=== PATIENT | male | born 1940 | race Caucasian/White ===

== ENCOUNTER 2017-10-04 06:23 | Day surgery (SDC) | payer OTHER ==
--- NOTE | 2017-10-02 10:12 | RAD REPORT ---
EXAM DESCRIPTION: RAD - Chest Pa And Lat (2 Views) - 10/02/2017 10:00 am CLINICAL HISTORY: Hypertension Chest pain. COMPARISON: CHEST PA AND LAT 2 VIEW dated 05/24/2011; CHEST PA AND LAT 2 VIEW dated 05/05/2010; CHEST PA AND LAT 2 VIEW dated 07/03/2007 FINDINGS: The lungs are clear. The heart is normal in size. No displaced fractures. Slight elevation left hemidiaphragm noted. IMPRESSION: No acute or concerning finding suspected.
[2017-10-02 10:32] LABS: Absolute Lymphocytes (CBC) 1.9 K/uL (0.7-4.9); Absolute Monocytes 0.9 K/uL (0.1-1.3); Absolute Neutrophil 4.2 K/uL (1.8-8.0); Eosinophils % 8.7 % (0-4.4); Hematocrit 44.9 % (39.6-49.0); Lymphocytes % 24.8 % (15.3-44.8); MCH 31.9 pg (27.0-35.0); MCV 94.6 fL (80-100); Monocytes % 11.6 % (3.3-12.3); RBC Red Blood Cell Count 4.74 M/uL (4.33-5.43)
[2017-10-02 10:49] LABS: BUN Blood Urea Nitrogen 16 mg/dL (7-18); Bicarbonate 27 mmol/L (21-32); Glucose Level 89 mg/dL (74-106); Sodium Level 141 mmol/L (136-145)
--- NOTE | 2017-10-02 15:41 | EKG ---
Test Date: 2017-10-02 Test Time: 09:49:33 Taker Out: LENI MEASUREMENT RESULTS: Intervals: Rate: 64 AR: 190 QRSD: 86 QT: 400 QTc: 412 [place]: P: -29 AR: 190 QRS: 27 T: 62 INTERPRETIVE STATEMENTS: Normal sinus rhythm Normal ECG Compared to ECG 02/08/2015 14:34:34 No significant changes Electronically Signed On 10-02-17 15:40:22 CDT by Brandon Salcido
--- OUTSIDE RECORDS SUMMARY | 2017-10-04 06:27 | XMS REPORT | Clinical Summary ---
:1940 Author Organization [facility] Address [address] [place] [address] Phone Care Team Providers Name Role Phone Unavailable Primary Care Provider Unavailable Allergies No Known Allergies Current Medications Prescription Sig. Disp. Refills Start Date End Date Status metoprolol Take 25 mg by Active (LOPRESSOR) 25 MG mouth daily. tablet amLODIPine (NORVASC) Take 5 mg by Active 5 MG tablet mouth daily. donepezil (ARICEPT) Take 10 mg by Active 10 MG tablet mouth nightly. aspirin 81 MG Take 81 mg by Active chewable tablet mouth daily. traMADol (ULTRAM) 50 Take 50 mg by Active mg tablet mouth every 6 (six) hours as needed for Pain. gabapentin Take 800 mg by Active (NEURONTIN) 800 MG mouth 3 (three) tablet times daily. ginkgo biloba 120 mg Take by mouth Active Tab daily. ASCORBATE CALCIUM Take by mouth Active (VITAMIN C ORAL) daily. multivitamin Take 1 tablet Active (MULTIVITAMIN) per by mouth daily. tablet cholecalciferol, Take 2,000 05/30/2017 Discontinued vitamin D3, 2,000 Units by mouth unit Tab daily. ginkgo biloba 60 mg Take by mouth. 05/30/2017 Discontinued Cap B INFANTIS/B ANI/B Take by mouth. 05/30/2017 Discontinued SANGEETA/B BIFID (PROBIOTIC 4X ORAL) Active Problems Problem Noted Date Degenerative arthritis of thumb, right 06/11/2017 DRUJ (distal radioulnar joint) post-traumatic arthritis 02/18/2016 Encounters Date Type Specialty Care Team Description 06/13/2017 Telephone Anesthesiology Freddie, Follow-up Naila Garcia RN 06/12/2017 Telephone Anesthesiology Debora Zepeda Follow-up ALEXYS Chiu 06/11/2017 Hospital Encounter Chi Cao MD 06/11/2017 Procedure Pass 06/11/2017 Surgery Chi Cao TENDON B., MD 06/08/2017 Anesthesia Event Osmany Whitley 05/30/2017 Hospital Encounter Pre-Admission Testing Chi Cao Post- traumatic MD Prabhu arthritis of distal radioulnar joint of right wrist 05/30/2017 Orders Only General Internal Medicine after 10/03/2016 Social History Tobacco Use Types Packs/Day Years Used Date Former Smoker Quit: 2005 Smokeless Tobacco: Never Used Comments: quit 1999 Alcohol Use Drinks/Week oz/Week Comments Yes 14 Standard drinks or equivalent 7.0 Sex Assigned at Date Recorded Not on file Last Filed Vital Signs Vital Sign Reading Time Taken Blood Pressure 131/78 06/11/2017 10:50 AM STRAW BALER Pulse 51 06/11/2017 10:50 AM STRAW [facility]ER Temperature 36.7 C (98.1 F) 06/11/2017 10:00 AM STRAW [facility]ER Respiratory Rate 16 06/11/2017 11:20 AM STRAW BALER Oxygen Saturation 99% 06/11/2017 10:50 AM STRAW BALER Inhaled Oxygen Concentration - - Weight 71.2 kg (157 lb) 06/11/2017 6:37 AM STRAW BALER Height 171.4 cm (5' 7.48") 06/11/2017 6:37 AM STRAW BALER Body Mass Index 24.24 06/11/2017 6:37 AM STRAW [facility]ER Plan of Treatment Not on file Implants Implanted Type Area Auto Body Mechanic Apprentice Device Expiration Model / Identifier Date Serial / Lot Cadillac Sut Mini Qanchr 2-0 [id number] - [id number] Cadillac/A Right: J [id number] / Implanted: Qty: 1 on 06/11/2017 by Chi Cao MD rthrosco Thumb &J: ETHICON:MITEK / py PRDT [id number] Explanted Type Area Auto Body Mechanic Apprentice Device Expiration Model / Identifier Date Serial / Lot Cadillac Sut Mini Qanchr 2-0 [id number] - [id number] Cadillac/A Right: J [id number] / Explanted: Qty: 1 on 06/11/2017 by Chi Cao MD rthrosco Thumb &J: ETHICON:MITEK / py PRDT [id number] Procedures Procedure Name Priority Date/Time Associated Diagnosis Comments ARTHROPLASTY,CARPOMET 06/11/2017 8:00 AM Osteoarthritis of ACARPAL TENDON STRAW BALER carpometacarpal joint of SUSPENSION right thumb, unspecified osteoarthritis type TRANSFER,TENDON 06/11/2017 8:00 AM Osteoarthritis of STRAW BALER carpometacarpal joint of right thumb, unspecified osteoarthritis type after 10/03/2016 Results ANESTHESIA PERIPHERAL BLOCK (06/11/2017 10:27 AM) Narrative Massimo Amaya MD 06/11/2017 10:27 AM Peripheral Block Patient location during procedure: post-op Start time: 06/11/2017 10:05 AM End time: 06/11/2017 10:11 AM Reason for block: procedure for pain, at surgeon's request and post-op pain management Staffing Anesthesiologist: MASSIMO AMAYA Performed by: anesthesiologist Preanesthetic Checklist Completed: patient identified, site marked, surgical consent, pre-op evaluation, timeout performed, IV checked, risks and benefits discussed and monitors and equipment checked Peripheral Block Patient position: left lateral decubitus Prep: ChloraPrep Patient monitoring: heart rate, remediation project engineer and continuous pulse ox Block type: supraclavicular Laterality: right Injection technique: catheter Procedures: ultrasound guided and landmark technique Local infiltration: ropivicaine Infiltration strength: 0.2 % Dose: 20 mL Needle Needle type: PAJUNK. Needle gauge: 18 G Needle length: 75mm. Catheter type: open end Catheter size: 20 G Assessment Injection assessment: negative aspiration for heme, no paresthesia on injection, incremental injection and local visualized surrounding nerve on ultrasound Paresthesia pain: none Heart rate change: no Slow fractionated injection: yes Additional Notes Patient tolerated well.No pain on injection or throughout procedure. Procedure Note Massimo Amaya MD - 06/11/2017 10:25 AM STRAW [facility]ER Peripheral Block Patient location during procedure: post-op Start time: 06/11/2017 10:05 AM End time: 06/11/2017 10:11 AM Reason for block: procedure for pain, at surgeon's request and post-op pain management Staffing Anesthesiologist: MASSIMO AMAYA Performed by: anesthesiologist Preanesthetic Checklist Completed: patient identified, site marked, surgical consent, pre-op evaluation , timeout performed, IV checked, risks and benefits discussed and monitors and equipment checked Peripheral Block Patient position: left lateral decubitus Prep: ChloraPrep Patient monitoring: heart rate, remediation project engineer and continuous pulse ox Block type: supraclavicular Laterality: right Injection technique: catheter Procedures: ultrasound guided and landmark technique Local infiltration: ropivicaine Infiltration strength: 0.2 % Dose: 20 mL Needle Needle type: PAJUNK. Needle gauge: 18 G Needle length: 75mm. Catheter type: open end Catheter size: 20 G Assessment Injection assessment: negative aspiration for heme, no paresthesia on injection , incremental injection and local visualized surrounding nerve on ultrasound Paresthesia pain: none Heart rate change: no Slow fractionated injection: yes Additional Notes Patient tolerated well. No pain on injection or throughout procedure. ECG 12 lead (05/30/2017 11:19 AM) Specimen Performing Laboratory MRI Interventions MUSE Narrative Ventricular Rate 62 BPM Atrial Rate 62 BPM P-R Interval 194 ms QRS Duration 88 ms Q-T Interval 402 ms QTC Calculation(Bazett) 408 ms P [place] -13 degrees R [place] 19 degrees T [place] 41 degrees Normal sinus rhythm Normal ECG When compared with ECG of 16-FEB-2016 12:25, Premature atrial complexes are no longer Present Confirmed by Estephania LARA BASANT ([id number]) on 05/30/2017 5:32:18 PM Procedure Note Interface, External Ris In - 05/30/2017 5:32 PM STRAW BALER Ventricular Rate 62 BPM Atrial Rate 62 BPM P-R Interval 194 ms QRS Duration 88 ms Q-T Interval 402 ms QTC Calculation(Bazett) 408 ms P [place] -13 degrees R [place] 19 degrees T [place] 41 degrees Normal sinus rhythm Normal ECG When compared with ECG of 16-FEB-2016 12:25, Premature atrial complexes are no longer Present Confirmed by Estephania LARA BASANT (Meg) on 05/30/2017 5:32:18 PM BUN and Creatinine (05/30/2017 11:18 AM) Component Value Ref Range BUN 15 7 - 21 mg/dL Creatinine 0.77Comment: Specimen slightly hemolyzed 0.57 - 1.25 mg/dL EGFR 98Comment: ESTIMATED GFR IS NOT ACCURATE mL/min/1.73 sq m CREATININE CLEARANCE IN PREDICTING GLOMERULAR FILTRATION RATE. ESTIMATED GFR IS NOT APPLICABLE FOR DIALYSIS PATIENTS. Specimen Performing Laboratory Blood [facility] [address] [address] Hemoglobin (05/30/2017 11:18 AM) Component Value Ref Range Hemoglobin 14.6 13.7 - 17.5 GM/DL Specimen Performing Laboratory Blood [address] [address] Glucose (05/30/2017 11:18 AM) Component Value Ref Range Glucose 106 (H) 70 - 105 mg/dL Specimen Performing Laboratory Blood [address] [address] Electrolytes (05/30/2017 11:18 AM) Component Value Ref Range Sodium 139 136 - 145 meq/L Potassium 4.3Comment: Specimen slightly hemolyzed 3.5 - 5.1 meq/L Chloride 104 98 - 107 meq/L CO2 26 22 - 29 meq/L Specimen Performing Laboratory Blood [address] [address] after 10/03/2016
--- OUTSIDE RECORDS SUMMARY | 2017-10-04 06:27 | XMS REPORT ---
:1940 Author Organization [facility] Address [address] [place] [address] [address] [place] [address] Care Team Providers Name Role Phone KIANNA SMITHÓscar Unavailable Unavailable Problems This patient has no known problems. Allergies, Adverse Reactions, Alerts This patient has no known allergies or adverse reactions. Medications This patient has no known medications. Results Test Description Test Time Test Comments Text Results Atomic Results Result Comments ELECTROLYTES 2017-05-30 12:55:00 Test Item Value Reference Range Comments SODIUM (BEAKER) (test mdmk=976) 139 meq/L 136-145 POTASSIUM (BEAKER) (test tzhx=367) 4.3 meq/L 3.5-5.1 Specimen slightly hemolyzed CHLORIDE (BEAKER) (test jddb=649) 104 meq/L 98-107 CO2 (BEAKER) (test hxrz=779) 26 meq/L 22-29 [id number] 12:55:00 Test Item Value Reference Range Comments GLUCOSE RANDOM (BEAKER) (test tmgt=153) 106 mg/dL 70-105 BUN AND [id number] 12:55:00 Test Item Value Reference Range Comments BLOOD UREA NITROGEN 15 mg/dL 7-21 (BEAKER) (test wbhj=749) CREATININE (BEAKER) (test 0.77 mg/dL 0.57-1.25 Specimen slightly luod=229) hemolyzed EGFR (BEAKER) (test 98 mL/min/1.73 sq m ESTIMATED GFR IS NOT egcv=7671) ACCURATE CREATININE CLEARANCE IN PREDICTING GLOMERULAR FILTRATION RATE. ESTIMATED GFR IS NOT APPLICABLE FOR DIALYSIS PATIENTS. [id number] 12:21:00 Test Item Value Reference Range Comments HEMOGLOBIN (BEAKER) (test hkup=795) 14.6 GM/DL 13.7-17.5
[2017-10-04] MEDS ORDERED: CEFAZOLIN/SWI 1gm 1 GM/10 ML SYR ONE (06:53)
[2017-10-04] MEDS ORDERED: Ringers Lactate 1,000 ML IV ONE (06:53)
[2017-10-04] MEDS: BUPIVACAINE 0.5% PF 10 ML VIAL ONE ×2 (07:20→07:38)
[2017-10-04] MEDS ORDERED: PROPOFOL 200 MG/20 ML VIAL IV ONE (07:21)
[2017-10-04] MEDS ORDERED: FENTANYL CITR 100 MCG/2 ML ONE (07:22)
[2017-10-04] MEDS ORDERED: LIDOCAINE 2% MPF 5 ML VIAL ONE (07:22)
[2017-10-04] MEDS ORDERED: ROCURONIUM 50 MG/5 ML VIAL IV ONE (07:23)
[2017-10-04] MEDS ORDERED: ONDANSETRON HCL 40 MG/20 ML VIAL ONE (07:23)
[2017-10-04] MEDS ORDERED: EPHEDRINE SULF 50 MG/5 ML SYR ONE (08:00)
[2017-10-04] MEDS ORDERED: BUPIVACAINE 0.5% PF 10 ML VIAL ONE (08:19)
[2017-10-04] MEDS ORDERED: GLYCOPYRROLATE 0.2 MG/ML SYR ONE (08:45)
[2017-10-04] MEDS ORDERED: NEOSTIGMINE 1 MG/ML -5 ML SYRINGE ONE (08:47)
[2017-10-04] MEDS: MEPERIDINE HCL 50 MG/ML AMP ONE ×4 (09:22→09:38)
[2017-10-04] MEDS ORDERED: HYDROCODONE/APAP 7.5/325 MG TAB ONE ×2 (10:43→12:41)
--- NOTE | 2017-10-04 15:56 | OP ---
Date of Procedure: 10/04/2017 Surgeon: Roe Ariza MD Np: BURKE Hughes Preoperative Diagnosis: Bilateral inguinal hernia. Postoperative Diagnosis: Bilateral inguinal hernia. Procedure: Repair of bilateral inguinal hernia. Estimated Blood Loss: Minimal. Specimens: Cord lipoma and hernia sac. Findings: As above. Anesthesia: General. Complications: None. Disposition: The patient tolerated the procedure in stable condition and taken to the Recovery in go od general condition. Operative Note: The patient was brought to the OR and placed in supine position. General anesthesia was begun. The patient was prepped and draped in usual sterile fashion. Marcaine 0.5% was infiltra sundeep in a field block fashion. Then, a 4 cm oblique incision made on the right side, first between th e anterior iliac superior spine and the pubic tubercle. Subcutaneous tissue divided. Joni fascia was identified and divided. Aponeurosis was identified and mobilized inferiorly shelving edge. Then , aponeurosis was opened through the external ring. The ilioinguinal nerve was identified and retrac sundeep out of the field of dissection. Cord mobilized and skeletonized. A large indirect sac with cord lipoma identified. High ligation done after appropriate dissection with 0 Prolene suture ligature a s well as free hand tie, and then cord lipoma and hernia sac excised and sent to Pathology as specime n. Marlex mesh plug was placed in the internal ring, secured with VersaTack stapler, and Onlay mesh was placed on the inguinal floor, secured medially to the pubic tubercle, inferiorly to the shelving edge, superior to the conjoined tendon, and laterally to each other. Then, cord structures and ilioi nguinal nerve placed back in anatomical location and then 2-0 Prolene was used to close the aponeuros is. A 3-0 chromic was used to close Joni fascia and staple was used to close the skin. Sterile dr essing was applied. Then, exact same operation was occurred on the left side. Findings were very si milar with the cord lipoma and hernia sac being small. Exact same repair done and then a sterile jayla ssing was applied. The patient was awakened and taken to Recovery in good general condition. Discharge Note: The patient will go to Day Surgery and home when stable. Disposition: Home. Condition: Stable. Discharge Instructions: Resume home meds and diet. Activity as tolerated. No heavy lifting. Remov e outer dressing in 2 days. Shower. Keep wound clean, dry, ice pack, scrotal support. Tylenol No. 3 one tablet p.o. q.4 p.r.n. pain. Follow up in my office in a week. Call for appointment. VIVIAN/SONJA Voice ID: [id number] Report ID: [id number]
== END 2017-10-04 16:00 | disposition home or self-care (01) ==
LOC: OR 06:23
PROVIDERS: ATTEND Surgery
PROC: 0YUA4JZ Supplement Bilateral Inguinal Region with Synthetic Substitute, Percutaneous Endoscopic Approach (ICD-10-PCS; 2017-10-04)
PROC: 0VB Male Reproductive System, Excision (ICD-10-PCS; principal; 2017-10-04 07:30)
DX: K40.20 Bilateral inguinal hernia, without obstruction or gangrene, not specified as recurrent (principal); D17.6 Benign lipomatous neoplasm of spermatic cord
CPT/HCPCS: 36415; 49650; 55559; 71046; 80048; 85025; 88302; 93005; J0690; J2175 ×2; J2405; J2710; J3010

== ENCOUNTER 2018-12-20 10:57 | Inpatient (IN) | payer OTHER ==
--- OUTSIDE RECORDS SUMMARY | 2018-12-20 11:05 | XMS REPORT | Continuity of Care Document ---
:1940 Author Organization [facility] Care Team Providers Name Role Phone [facility] Unavailable Unavailable Problems No Data Provided for This Section Medications No Data Provided for This Section Allergies, Adverse Reactions, Alerts No Known Medication Allergies Immunizations No Data Provided for This Section Results No Data Provided for This Section Pathology Reports No Data Provided for This Section Diagnostic Reports No Data Provided for This Section Consultation Notes No Data Provided for This Section Discharge Summaries No Data Provided for This Section History and Physicals No Data Provided for This Section Vital Signs No Data Provided for This Section Encounters Location Location Encounter Encounter Reason Attending ADM DC Status Source Details Type Number For Provider Date Date Visit [facility] Outpatient [id number] [place] 01/14 01/14 Active [facility] Out[facility] [id number] [place] 01/14 01/15 [facility] Procedures No Data Provided for This Section Assessment and Plan No Data Provided for This Section Plan of Care No Data Provided for This Section Social History Social History Date Source No data available for this 01/15/2018 [facility] section Family History No Data Provided for This Section Advance Directives No Data Provided for This Section Functional Status No Data Provided for This Section
--- OUTSIDE RECORDS SUMMARY | 2018-12-20 11:05 | XMS REPORT | Clinical Summary ---
:1940 Author Organization [facility] Address [address] [place] [address] Care Team Providers Name Role Phone Lonnie Nugent MD Primary Care Provider Allergies No Known Allergies Medications Medication Sig Dispensed Refills Start Date End Date Status metoprolol (LOPRESSOR) Take 25 mg by 0 Active 25 MG tablet mouth daily. amLODIPine (NORVASC) 5 Take 5 mg by 0 Active MG tablet mouth daily. donepezil (ARICEPT) 10 Take 10 mg by 0 Active MG tablet mouth nightly. aspirin 81 MG chewable Take 81 mg by 0 Active tablet mouth daily. traMADol (ULTRAM) 50 mg Take 50 mg by 0 Active tablet mouth every 6 (six) hours as needed for Pain. gabapentin (NEURONTIN) Take 800 mg by 0 Active 800 MG tablet mouth 3 (three) times daily. ginkgo biloba 120 mg Take by mouth 0 Active Tab daily. ASCORBATE CALCIUM Take by mouth 0 Active (VITAMIN C ORAL) daily. multivitamin Take 1 tablet by 0 Active (MULTIVITAMIN) per mouth daily. 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 Last Filed Vital Signs Not on file Plan of Treatment Not on file Implants Implanted Type Area Cardiology Rn Device Shelf Model / Identifier Expiration Serial / Date Lot Lafe Sut Mini Qanchr 2-0 [id number] - [id number] Lafe/A Right: J [id number] / Implanted: Qty: 1 on 06/11/2017 by Chi Cao IV, MD rthrosco Thumb &J:ETHICON:MERCEDESK / py PRDT [id number] Results Not on fileafter 12/19/2017 Insurance Payer Benefit Plan / Group Subscriber ID Type Phone Address MEDICARE MEDICARE A B xxxxxxxxxx Medicare MCR SUPPLEMENT/INDIVIDUAL MUTUAL OF [employer] xxxxxxxx [employer] ([place]) [address] [place] [phone] Advance Directives For more information, please contact:[address] [phone] Code Status Date Activated Date Inactivated Comments Full Code 06/11/2017 6:25 AM 06/11/2017 1:45 PM This code status was determined by: Patient Full Code 02/18/2016 11:03 AM 02/18/2016 7:02 PM This code status was determined by: Patient
--- OUTSIDE RECORDS SUMMARY | 2018-12-20 11:05 | XMS REPORT ---
:1940 Author [facility] Address [address] [place] [address] Care Team Providers Name Role Phone LUIS KIANNA Pelletier Unavailable Unavailable Problems This patient has no known problems. Allergies, Adverse Reactions, Alerts This patient has no known allergies or adverse reactions. Medications This patient has no known medications. Results Test Description Test Time Test Comments Text Results Atomic Results Result Comments ELECTROLYTES 2017-05-30 12:55:00 Test Item Value Reference Range Comments SODIUM (BEAKER) (test badc=173) 139 meq/L 136-145 POTASSIUM (BEAKER) (test lfek=784) 4.3 meq/L 3.5-5.1 Specimen slightly hemolyzed CHLORIDE (BEAKER) (test bhck=161) 104 meq/L 98-107 CO2 (BEAKER) (test lguv=424) 26 meq/L 22-29 [id number] 12:55:00 Test Item Value Reference Range Comments GLUCOSE RANDOM (BEAKER) (test bczx=623) 106 mg/dL 70-105 BUN AND [id number] 12:55:00 Test Item Value Reference Range Comments BLOOD UREA NITROGEN 15 mg/dL 7-21 (BEAKER) (test kifv=979) CREATININE (BEAKER) (test 0.77 mg/dL 0.57-1.25 Specimen slightly nwii=608) hemolyzed EGFR (BEAKER) (test 98 mL/min/1.73 sq m ESTIMATED GFR IS NOT roqc=3696) ACCURATE CREATININE CLEARANCE IN PREDICTING GLOMERULAR FILTRATION RATE. ESTIMATED GFR IS NOT APPLICABLE FOR DIALYSIS PATIENTS. [id number] 12:21:00 Test Item Value Reference Range Comments HEMOGLOBIN (BEAKER) (test rqfn=177) 14.6 GM/DL 13.7-17.5
--- OUTSIDE RECORDS SUMMARY | 2018-12-20 11:05 | XMS REPORT | Clinical Summary ---
:1940 Author Organization [facility] Address [address] [place] [id number] Care Team Providers Name Role Phone Lonnie Nugent MD Primary Care Provider Allergies No Known Allergies Medications Medication Sig Dispensed Refills Start Date End Date Status gabapentin (NEURONTIN) Take 800 mg by 0 Active 800 mg tablet mouth 3 (three) times a day. amLODIPine (NORVASC) 5 Take 5 mg by 0 Active mg tablet mouth daily. vit A/vit C/vit Take by mouth. 0 Active E/zinc/copper (ICAPS AREDS ORAL) donepezil (ARICEPT) 5 Take 5 mg by 0 Active MG tablet mouth nightly. Active Problems Problem Noted Date Spondylolisthesis at L5-S1 level 11/29/2018 Overview: Added automatically from request for surgery [id number] Other spondylosis with radiculopathy, lumbar region 11/29/2018 Overview: Added automatically from request for surgery [id number] Spondylolisthesis at L4-L5 level 11/29/2018 Overview: Added automatically from request for surgery [id number] Encounters Date Type Specialty Care Team Description 11/29/2018 Transcribe Orders Maco Calvert Spondylolisthesis at L5-S1 level (Primary Dx); Mignon Pelletier MD Other spondylosis with radiculopathy, lumbar region; Spondylolisthesis at L4-L5 level 11/22/2018 Office Visit Orthopedic Maco Ferrer Spondylolisthesis at L5- S1 level (Primary Dx); Mignon Pelletier MD Other spondylosis with radiculopathy, lumbar region; Spondylolisthesis at L4-L5 level 11/17/2018 Hospital Encounter Radiology Maco Ferrer Other spondylosis with radiculopathy, lumbar region; MD Prabhu Spondylolisthesis at L4-L5 level; Spondylolisthesis at L5-S1 level 11/15/2018 Office Visit Orthopedic Frandy Garcias Other spondylosis with radiculopathy, lumbar region (Primary Dx); Surgery ANANTH Vallejo Spondylolisthesis at L4-L5 level; Spondylolisthesis at L5-S1 level 10/11/2018 Anesthesia Event General Surgery Gely Alaniz MD Hurd, Sherryl Ann, NP 10/11/2018 Surgery General Surgery Jeremias William LUMBAR FACET JOINT MD Consuelo INJECTION TARGETING THE BILATERAL L4-L5, L5-S1 LEVELS 10/11/2018 Hospital Encounter General Surgery Jeremias William MD 08/16/2018 Surgery General Surgery Jeremias William LUMBAR INTERLAMINAR JIE MD Consuelo TARGETIN LEFT L34 LEVELS WITH INTERLAMINAR LUMBAR JIE TARGETING RIGHT L45 SEGMENT OR OTHER INDICATED PROCEDURES 08/16/2018 Anesthesia Event General Surgery Dhruv Augustine MD Sardina, Maydee, NP 08/16/2018 Hospital Encounter General Surgery Jeremias William MD 08/13/2018 Pre-Admit Testing Pre-Admission Jeremias William Preop testing ( Primary Appointment Testing MD Consuelo Dx) after 12/19/2017 Family History Medical History Relation Name Comments No Known Problems Father Blindness Mother Patric Cancer Mother Patric Stroke Mother Patric Relation Name Status Comments Father Mother Patric Social History Tobacco Use Types Packs/Day Years Used Date Former Smoker Cigarettes 0.25 20 Quit: 2004 Smokeless Tobacco: Former User Snuff Quit: 2004 Alcohol Use Drinks/Week oz/Week Comments Yes 5 Cans of beer 5x/wk 7 Shots of liquor Sex Assigned at Date Recorded Not on file Job Start Date Occupation Industry Not on file Not on file Not on file Travel History Travel Start Travel End No recent travel history available. Last Filed Vital Signs Vital Sign Reading Time Taken Comments Blood Pressure 140/73 10/11/2018 12:00 PM CDT Pulse 67 10/11/2018 12:00 PM CDT Temperature 36.7 C (98 F) 10/11/2018 11:25 AM CDT Respiratory Rate 19 10/11/2018 12:00 PM CDT Oxygen Saturation 96% 10/11/2018 12:00 PM CDT Inhaled Oxygen Concentration - - Weight 75.3 kg (166 lb) 11/15/2018 11:59 AM CDT Height 171.5 cm (5' 7.5") 11/15/2018 11:59 AM CDT Body Mass Index 25.62 11/15/2018 11:59 AM CDT Plan of Treatment Date Type Specialty Care Team Description 01/07/2019 Office Visit Orthopedic [place] Surgery ANANTH Jean [address] [place], [place] [address] 01/07/2019 Pre-Admit Testing Pre-Admission Appointment Testing 01/23/2019 Hospital Encounter [place] [address] [place], [place] [id number] 01/23/2019 Surgery General Surgery Maco Ferrer LUMBAR POSTERIOR MD Prabhu DECOMPRESSION [id number] [facility] LAMINECTOMY L3-4, Freeway L4-5, L5-S1 BILATERAL; [place], [place] LUMBAR POSTERIOR [id number] FUSION WITH [phone] INSTRUMENTATION L3-4, L4-5, L5-S1; LUMBAR (Fax) MORSALIZED ALLOGRAFT, AUTOGRAFT: ILIAC CREST BONE GRAFT, AND INDICATED PROCEDURES. 02/05/2019 [place] [address] [place], [place] [id number] Health Maintenance Due Date Last Done Comments SHINGLES VACCINES (#1) 1990 65+ PNEUMOCOCCAL VACCINE (1 of 2 - PCV13) 2005 INFLUENZA VACCINE 11/07/2018 Procedures Procedure Name Priority Date/Time Associated Diagnosis Comments MRI LUMBAR SPINE Routine 11/17/2018 1:56 Other spondylosis with Results for this WO CONTRAST PM CDT radiculopathy, lumbar procedure are in region the results Spondylolisthesis at section. L4-L5 level Spondylolisthesis at L5-S1 level XR LUMBAR SPINE Routine 11/15/2018 10:37 Lumbar radiculopathy Results for this COMPLETE W BENDING AM CDT procedure are in the results section. OR FL < 1 HOUR Routine 10/11/2018 11:16 Results for this AM CDT procedure are in the results section. OR FL < 1 HOUR Routine 08/16/2018 9:50 Results for this AM CDT procedure are in the results section. ECG 12-LEAD Routine 08/13/2018 12:54 Preop testing Results for this PM CDT procedure are in the results section. after 12/19/2017 Results MRI Lumbar Spine Wo Contrast (11/17/2018 1:56 PM CDT) Specimen Narrative Performed At [facility] EXAM:MRI LUMBAR SPINE WO CONTRAST COMPARISON: None. CLINICAL HISTORY: M47.26 Other spondylosis with radiculopathylumbar region, M43.16 Spondylolisthesislumbar region, [id number] conservative txpersistent sx, lumbar radiculopathylumbar spondylosis spondylolisthesis TECHNIQUE: Multiplanar multisequence examination was performedWithout contrast. FINDINGS: Sagittal images demonstrate generalized disc space narrowing throughout the lumbar spine. There is grade 1 degenerative spondylolisthesis at L4-5. Axial images demonstrate the following: L5-S1: There are facet joint degenerative changes. There is mild central subligamentous protrusion. There is mild multifactorial central canal stenosis and moderate bilateral foraminal stenosis. L4-5: There is annular bulging with a shallow central protrusion. There is a moderate to large broad-based right foraminal/extraforaminal protrusion with apparent compression of the right L4 nerve root. Ligament flavum thickening and facet hypertrophic changes are noted bilaterally more severe on the left. There is moderate to severe multilateral central canal stenosis and foraminal stenosis worse on the right. L3-4: There is annular bulging and spondylosis with moderate multifactorial central canal stenosis. L2-3: There is mild annular bulging and a superimposed small right paracentral protrusion without stenosis. L1-2: There is mild annular bulging without stenosis. IMPRESSION: Broad-based right foraminal/extra foraminal protrusion at L4-5 with impingement on the right L4 nerve root. Central subligamentous protrusion at L5-S1. Small right paracentral protrusion at L2-3 Multilevel canal and foraminal stenosis as discussed above, most prominent at L4-5. [id number] Procedure Note Interface, Radiology Results Incoming - 11/17/2018 2:02 PM CDT EXAM: MRI LUMBAR SPINE WO CONTRAST COMPARISON: None. CLINICAL HISTORY: M47.26 Other spondylosis with radiculopathy lumbar region , M43.16 Spondylolisthesis lumbar region, Radiculopathy 6wks conservative tx persistent sx, lumbar radiculopathy lumbar spondylosis spondylolisthesis TECHNIQUE: Multiplanar multisequence examination was performed Without contrast. FINDINGS: Sagittal images demonstrate generalized disc space narrowing throughout the lumbar spine. There is grade 1 degenerative spondylolisthesis at L4-5. Axial images demonstrate the following: L5-S1: There are facet joint degenerative changes. There is mild central subligamentous protrusion. There is mild multifactorial central canal stenosis and moderate bilateral foraminal stenosis. L4-5: There is annular bulging with a shallow central protrusion. There is a moderate to large broad-based right foraminal/extraforaminal protrusion with apparent compression of the right L4 nerve root. Ligament flavum thickening and facet hypertrophic changes are noted bilaterally more severe on the left. There is moderate to severe multilateral central canal stenosis and foraminal stenosis worse on the right. L3-4: There is annular bulging and spondylosis with moderate multifactorial central canal stenosis. L2-3: There is mild annular bulging and a superimposed small right paracentral protrusion without stenosis. L1-2: There is mild annular bulging without stenosis. IMPRESSION: Broad-based right foraminal/extra foraminal protrusion at L4-5 with impingement on the right L4 nerve root. Central subligamentous protrusion at L5-S1. Small right paracentral protrusion at L2-3 Multilevel canal and foraminal stenosis as discussed above, most prominent at L4-5. [id number] Performing Organization Address City/State/Zipcode Phone Number [facility] [address] [place] [address] XR Lumbar Spine Complete W Flex and Ext (11/15/2018 10:37 AM CDT) Specimen Narrative Performed At 7 views of the lumbar spine are reviewed.AP view demonstrates a mild HM [facility] right lateral lean.There is a slight lateral listhesis of L4 on L5 to the patient's left.There is a slight limb length difference on the right.There are degenerative changes in the hip joints, left worse than right that are partially visualized on the AP radiograph.There are marginal osteophytes on the left at multiple levels in the lower thoracic spine and upper lumbar spine.Lateral view demonstrates disc degeneration at each level in the lumbar spine and in the visualized portion of the lower thoracic spine.There are bridging anterior osteophytes at T10-11, T11-12, T12-L1 and L12.This appearance is consistent with DISH.There is a grade 1 spondylolisthesis at L4-5 and L5-S1. The spondylolisthesis at L5-S1 appears to be mildly unstable on flexion/extension.The L4-5 spondylolisthesis is stable.There is evidence of facet joint arthrosis at L3-4, L4-5 and L5-S1 bilaterally.There is no evidence of acute fracture or osseous lesion in the lumbar spine. Performing Organization Address [facility] Phone Number [facility] [address] [place] [address] OR FL < 1 Hour (10/11/2018 11:16 AM CDT)Only the most recent of2 resultswithin the time period is included. Specimen Narrative Performed At EXAMINATION:OR FL 1 HOUR [facility] CLINICAL HISTORY: None provided. IMPRESSION: 1. Fluoroscopy was provided in the operating. I was not present during the procedure. 2. Please refer to the operative report for findings. 3. Total Dose:3 fluoroscopic images. 24.9 seconds of fluoroscopy time. Procedure Note Interface, Radiology Results Incoming - 10/11/2018 1:38 PM CDT EXAMINATION: OR FL 1 HOUR CLINICAL HISTORY: None provided. IMPRESSION: 1. Fluoroscopy was provided in the operating. I was not present during the procedure. 2. Please refer to the operative report for findings. 3. Total Dose: 3 fluoroscopic images. 24.9 seconds of fluoroscopy time. Performing Organization Address [facility] Phone Number [facility] [address] [place] [address] ECG 12 lead (08/13/2018 12:54 PM CDT) Ventricular rate 83 [facility] Atrial rate 83 [facility] NC interval 186 [facility] QRSD interval 90 [facility] QT interval 378 [facility] QTC interval 444 [facility] P axis 1 -6 [facility] QRS axis 1 -16 [facility] T wave axis 58 [facility] EKG impression Normal sinus [facility] rhythm-Possible Anterior infarct , age undetermined-Abnormal ECG-No previous ECGs available-Electronicall y Signed By Oseas Corbin MD (2024) on 08/15/2018 2:59:57 PM Specimen Narrative Performed At Performing Organization Address City/State/Zipcode Phone Number [facility] [address] [place] [address] after 12/19/2017 Insurance Payer Benefit Plan / Subscriber ID Effective Phone Address Type Group Dates MEDICARE MEDICARE PART xxxxxxxxxxx 2005-[place], [place] Medicare A AND B nt [employer] OF [employer] OF xxxxxxxx 2018-[facility] [employer] [place] Advance Directives For more information, please contact: [phone] Type Date Recorded Patient Janitor Cleaner Explanation Advance Directives, Living Will 08/13/2018 1:01 PM and Medical Power of Nutrition Representative
[2018-12-20 12:11] LABS: Absolute Lymphocytes (CBC) 1.8 K/uL (0.7-4.9); Basophils % 0.7 % (0-1.3); Hematocrit 39.2 % (39.6-49.0); Lymphocytes % 13.9 % (15.3-44.8); MPV 7.4 fL (7.6-11.3); RBC Red Blood Cell Count 4.15 M/uL (4.33-5.43)
--- NOTE | 2018-12-20 12:14 | RAD REPORT ---
EXAM DESCRIPTION: CT - Chest For Pe Angio - 12/20/2018 12:06 pm CLINICAL HISTORY: Chest pain. right lower chest pain, sob COMPARISON: Chest Abdomen Pelvis W Cont dated 12/07/2018; Chest Pa And Lat (2 Views) dated 09/25/2018 TECHNIQUE: CT angiogram of the pulmonary arteries was performed with MIP. All CT scans are performed using dose optimization technique as appropriate and may include automated exposure control or mA/KV adjustment according to patient size. FINDINGS: No evidence of pulmonary thromboembolism. Linear atelectasis is present in both lung bases, slightly greater on the left. Small loculated right pleural effusion is present. No significant pericardial or pleural fluid. No concerning bony finding. IMPRESSION: No evidence of pulmonary thromboembolism. Small loculated right pleural effusion. Subsegmental atelectasis in both lung bases.
--- NOTE | 2018-12-20 12:15 | RAD REPORT ---
EXAM DESCRIPTION: CTAbdomen Pelvis W Contrast - 12/20/2018 12:05 pm CLINICAL HISTORY: Abdominal pain. right upper abdominal pain, IV ONLY, recent appendectomy COMPARISON: Abdomen Pelvis W Contrast dated 07/09/2017 TECHNIQUE: Biphasic CT imaging of the abdomen and pelvis was performed with 100 ml non-ionic IV cont rast. All CT scans are performed using dose optimization technique as appropriate and may include automated exposure control or mA/KV adjustment according to patient size. FINDINGS: Atelectasis is present in both lung bases with a small loculated right pleural effusion.Un derlying developing infiltrate/pneumonia is possible. The liver, spleen, pancreas, adrenal glands and kidneys are within normal limits. No bowel obstruction, free air, free fluid or abscess. Sigmoid diverticulosis without diverticulitis. Appendectomy clips. Inguinal clips bilaterally compatible with prior hernia repair. No evidence of significant lymphadenopathy. No suspicious bony findings. IMPRESSION: No acute intra-abdominal or pelvic finding. Recent appendectomy noted.
[2018-12-20 12:24] LABS: ALT/SGPT 40 U/L (12-78); AST/SGOT 21 U/L (15-37); Albumin 3.6 g/dL (3.4-5.0); Alkaline Phosphatase 90 U/L (45-117); BUN Blood Urea Nitrogen 14 mg/dL (7-18); Bicarbonate 30 mmol/L (21-32); Bilirubin Direct 0.2 mg/dL (0-0.2); Bilirubin Total 0.6 mg/dL (0.2-1.0); Glucose Level 94 mg/dL (74-106); Lipase 160 U/L (73-393); Potassium 3.9 mmol/L (3.5-5.1); Protein, Total 7.2 g/dL (6.4-8.2); Sodium Level 138 mmol/L (136-145); Troponin (Emerg Dept Use Only) < 0.02 ng/mL (0.0-0.045)
[2018-12-20] MEDS ORDERED: ONDANSETRON 4 MG/2 ML VIAL ONE (13:09)
[2018-12-20] MEDS ORDERED: MORPHINE 2 MG/ML SYR ONE (13:09)
[2018-12-20] MEDS ORDERED: NA CHLORIDE 0.9% 1,000 ML ONE (13:30)
[2018-12-20] MEDS ORDERED: ACETAMINOPHEN 500 MG TAB ONE (13:30)
--- NOTE | 2018-12-20 16:21 | RAD REPORT ---
EXAM DESCRIPTION: US - Abdomen Exam Limited - 12/20/2018 4:03 pm CLINICAL HISTORY: right upper abdominal pain COMPARISON: No comparisons FINDINGS: The gallbladder demonstrates no gallstones. No pericholecystic fluid or gallbladder wall t hickening. The common bile duct is normal measuring 4 mm. The liver demonstrates no findings of intrahepatic biliary dilatation. IMPRESSION: Unremarkable examination.
[2018-12-20] MEDS ORDERED: PIPER/TAZO/NS 3.375gm 3.375 GM/100 ML BAG ONE (17:49)
[2018-12-20] MEDS ORDERED: ONDANSETRON 4 MG/2 ML VIAL IV PRN (17:52)
[2018-12-20] MEDS ORDERED: MORPHINE 2 MG/ML SYR IV PRN (17:52)
[2018-12-20] MEDS ORDERED: ACETAMINOPHEN 500 MG TAB PO PRN (17:52)
--- NOTE | 2018-12-20 17:52 | EDPHYS ---
Physician Documentation [facility] Name: Chi Aguillon Age: 78 yrs Sex: Male : 1940 Arrival Date: 12/20/2018 Time: 10:59 Bed 13 Private MD: Evelyn Nugent C ED Physician Omar Sorto HPI: 12/20 11:44 This 78 yrs old Male presents to ER via Ambulatory with complaints of Chest jm Pain, Shortness Of Breath. 11:44 The patient presents with abdominal pain. Onset: The symptoms/episode began/occurred jmm today. This is a 78 year old male with a history of htn that presents to the ED with complaints of right upper abdominal pain, worsening with deep inspiration. S/p appendectomy 1 week prior. Denies fever or chills. Was evaluated at Dr. Guillaume office and advised to go to the ED for further evaluation. . Historical: - Allergies: 11:04 No Known Allergies; aa5 - Home Meds: 14:47 amlodipine oral [Active]; gabapentin Oral [Active]; jl7 - PMHx: 11:04 Hypertension; aa5 - PSHx: 11:04 Hernia repair; aa5 14:47 Appendectomy; jl7 - Immunization history:: Adult Immunizations up to date. - Ebola Screening: : No symptoms or risks identified at this time. - Social history:: Smoking status: Patient/guardian denies using tobacco. ROS: 11:44 Constitutional: Negative for fever, chills, and weight loss. jm 11:44 Respiratory: Negative for shortness of breath, cough, wheezing, and pleuritic chest pain. 11:44 Back: Negative for injury and pain, MS/Extremity: Negative for injury and deformity, Skin: Negative for injury, rash, and discoloration, Neuro: Negative for headache, weakness, numbness, tingling, and seizure. 11:44 Cardiovascular: Positive for chest pain, of the diaphragm and right breast. 11:44 Abdomen/GI: Positive for abdominal pain. 11:44 All other systems are negative. Exam: 11:44 Constitutional: This is a well developed, well nourished patient who is awake, alert, jmm and in no acute distress. Head/Face: atraumatic. Eyes: EOMI, no conjunctival erythema appreciated ENT: Moist Mucus Membranes Neck: Trachea midline, Supple Chest/axilla: Normal chest wall appearance and motion. Cardiovascular: Regular rate and rhythm. No edema appreciated Respiratory: Normal respirations, no respiratory distress appreciated 11:44 Back: Normal ROM Skin: General appearance color normal MS/ Extremity: Moves all extremities, no obvious deformities appreciated, no edema noted to the lower extremities Neuro: Awake and alert, normal gait Psych: Behavior is normal, Mood is normal, Patient is cooperative and pleasant 11:44 Abdomen/GI: Inspection: abdomen appears normal, Bowel sounds: normal, Palpation: soft, moderate abdominal tenderness, in the right upper quadrant. Vital Signs: 11:05 BP 130 / 87; Pulse 84; Resp 18 S; Temp 97.6(TE); Pulse Ox 96% on R/A; Weight 72.57 kg aa5 (R); Height 5 ft. 7 in. (170.18 cm) (R); Pain 8/10; 12:19 BP 126 / 73; Pulse 81; Resp 20; Temp 97.7(TE); Pulse Ox 94% on R/A; mh5 13:00 BP 143 / 90; Pulse 85; Resp 17 S; Pulse Ox 92% on R/A; jl7 13:38 BP 134 / 80; Pulse 98; Resp 22 S; Temp 98.5(O); Pulse Ox 92% on R/A; jl7 14:44 BP 106 / 71; Pulse 88; Resp 15; Temp 99.0(TE); Pulse Ox 92% on R/A; mh5 15:54 BP 93 / 60; Pulse 81; Resp 16; Temp 98.9(TE); Pulse Ox 92% ; mh5 17:28 BP 98 / 63; Pulse 87; Resp 23 S; Pulse Ox 92% on R/A; jl7 18:11 BP 120 / 79; Pulse 82; Resp 16; Temp 97.6(TE); Pulse Ox 93% on R/A; mh5 11:05 Body Mass Index 25.06 (72.57 kg, 170.18 cm) aa5 MDM: 11:40 Patient medically screened. raffy 17:46 Data reviewed: vital signs, nurses notes. Counseling: I had a detailed discussion with raffy the patient and/or guardian regarding: the historical points, exam findings, and any diagnostic results supporting the discharge/admit diagnosis, lab results, radiology results, the need for further work-up and treatment in the hospital. ED course: I discussed the patient with Dr. Nugent whom accepted admission. Advised lovenox for dvt precautions. I discussed patient with Dr. Hernandez whom will consult on admission. . 12/20 11:40 Order name: Basic Metabolic Panel; Complete Time: 12:28 [facility] 12/20 11:40 Order name: CBC with Diff; Complete Time: 12:28 [facility] 12/20 11:40 Order name: Creatinine for Radiology; Complete Time: 12:53 [facility] 12/20 11:40 Order name: Hepatic Function; Complete Time: 12:28 [facility] 12/20 11:40 Order name: Lipase; Complete Time: 12:28 [facility] 12/20 11:40 Order name: Troponin (emerg Dept Use Only); Complete Time: 12:28 [facility] 12/20 11:40 Order name: Procalcitonin; Complete Time: 12:53 [facility] 12/20 11:40 Order name: Lactate; Complete Time: 12:28 [facility] 12/20 11:40 Order name: Blood Culture Adult (2) [facility] 12/20 17:37 Order name: Urine Culture [facility] 12/20 17:37 Order name: Urine Microscopic Only; Complete Time: 21:44 [facility] 12/20 17:57 Order name: Basic Metabolic Panel [facility] 12/20 17:57 Order name: Basic Metabolic Panel [facility] 12/20 17:57 Order name: CBC with Automated Diff [facility] 12/20 11:41 Order name: CT Chest For PE Angio; Complete Time: 12:28 [facility] 12/20 11:41 Order name: CT Abd/Pelvis - IV Contrast Only; Complete Time: 12:28 [facility] 12/20 12:29 Order name: US Abdomen Limited; Complete Time: 16:34 [facility] 12/20 17:36 Order name: Chest Pa And Lat (2 Views) XRAY; Complete Time: 18:13 [facility] 12/20 17:57 Order name: CBC with Automated Diff [facility] 12/20 18:23 Order name: Urine Dipstick--Ancillary (enter results) tn 12/20 18:44 Order name: Urine Dipstick-Ancillary; Complete Time: 21:44 [facility] 12/20 11:40 Order name: IV Saline Lock; Complete Time: 12:03 [facility] 12/20 11:40 Order name: Labs collected and sent; Complete Time: 12:03 [facility] 12/20 11:49 Order name: EKG - Nurse/Tech; Complete Time: 12:03 [facility] 12/20 12:44 Order name: EKG Electrocardiogram; Complete Time: 15:46 [facility] 12/20 13:36 Order name: Vital Signs; Complete Time: 13:38 [facility] 12/20 17:37 Order name: Urine Dipstick-Ancillary (obtain specimen); Complete Time: 18:26 [facility] 12/20 17:57 Order name: CONS Physician Consult [facility] 12/20 17:57 Order name: Clear Liquid [facility] Administered Medications: 12:26 Not Given (Patient Refused): morphine 2 mg IVP once; RASS on ADMIN: Combtv4, Very jl7 Agttd3, Agttd2, Rstlss1, AlertClm0, Drwsy-1, Lt Sdtn-2, Mod Sdtn-3, Dp Sdtn-4, UnArsble-5 12:26 Not Given (Patient Refused): Zofran 4 mg IVP once; over 2 minutes jl7 13:25 Drug: Zofran 4 mg Route: IVP; Site: right antecubital; jl7 14:48 Follow up: Response: No adverse reaction jl7 13:25 Drug: morphine 2 mg Route: IVP; Site: right antecubital; jl7 13:55 Follow up: Response: No adverse reaction; Pain is decreased jl7 13:38 Drug: Tylenol 1000 mg Route: PO; jl7 14:05 Follow up: Response: No adverse reaction; Pain is decreased jl7 13:39 Drug: NS 0.9% 1000 ml Route: IV; Rate: 1 bolus; Site: right antecubital; jl7 14:47 Follow up: Response: No adverse reaction; IV Status: Completed infusion; IV Intake: jl7 1000ml 13:40 Not Given (Duplicate Order): morphine 2 mg IVP once; (PAIN>8) RASS on ADMN: Combtv4, jl7 Very Agttd3, Agttd2, Rstlss1, AlertClm0, Drwsy-1, LtSdtn-2, ModSdtn-3, DpSdtn-4, UnArsble-5 x2 18:23 Drug: Zosyn 3.375 grams Route: IVPB; Infused Over: 60 mins; Site: right antecubital; jl7 19:19 Follow up: IV Status: Infusion continued upon admission jl7 18:23 Drug: Lovenox 40 mg Route: Sub-Q; Site: left lower abdomen; jl7 19:18 Follow up: Response: No adverse reaction jl7 Disposition: 12/20/18 17:50 Hospitalization ordered by Evelyn Nugent for Observation. Preliminary diagnosis are Pleural effusion in conditions classified elsewhere, Unspecified abdominal pain, Dyspnea, unspecified. - Bed requested for Telemetry/MedSurg (observation). - Status is Observation. jl7 - Condition is Stable. - Problem is new. - Symptoms are unchanged. UTI on Admission? No Addendum: 12/21/2018 20:54 Co-signature as Attending Physician, Omar Sorto MD. r n Signatures: Dispatcher [employer] EDMS Elmer Gamble PA PA jmm Solis, Maria ms Nieto, Roman, MD MD rn Calderon, Audri RN RN aa5 Gabrielle Copeland RN RN jl7 Corrections: (The following items were deleted from the chart) 12/20 18:22 17:50 Hospitalization Ordered by A Raffi MENDEZ for Observation. Preliminary diagnosis is ms Pleural effusion in conditions classified elsewhere; Unspecified abdominal pain; Dyspnea, unspecified. Bed requested for Telemetry/MedSurg (observation). Status is Observation. Condition is Stable. Problem is new. Symptoms are unchanged. UTI on Admission? No. [facility] 19:20 18:22 12/20/2018 17:50 Hospitalization Ordered by A Raffi MENDEZ for Observation. jl7 Preliminary diagnosis is Pleural effusion in conditions classified elsewhere; Unspecified abdominal pain; Dyspnea, unspecified. Bed requested for Telemetry/MedSurg (observation). Status is Observation. Condition is Stable. Problem is new. Symptoms are unchanged. UTI on Admission? No. ms
--- NOTE | 2018-12-20 17:52 | ER ---
Nurse's Notes [facility] Name: Chi Aguillon Age: 78 yrs Sex: Male : 1940 Arrival Date: 12/20/2018 Time: 10:59 Bed 13 Private MD: Evelyn Nugent C Diagnosis: Pleural effusion in conditions classified elsewhere;Unspecified abdominal pain;Dyspnea, unspecified Presentation: 12/20 11:04 Presenting complaint: Patient states: "the lower part of my right rib cage hurts and aa5 it's hard to breath". Symptoms began 3 days ago. Pt denies cough, denies injury. Transition of care: patient was not received from another setting of care. Onset of symptoms was December 2018. Risk Assessment: Do you want to hurt yourself or someone else? Patient reports no desire to harm self or others. Initial Sepsis Screen: Does the patient meet any 2 criteria? No. Patient's initial sepsis screen is negative. Does the patient have a suspected source of infection? No. Patient's initial sepsis screen is negative. Care prior to arrival: None. 11:04 Acuity: JIE 3 aa5 11:04 Method Of Arrival: Ambulatory aa5 Historical: - Allergies: 11:04 No Known Allergies; aa5 - Home Meds: 14:47 amlodipine oral [Active]; gabapentin Oral [Active]; jl7 - PMHx: 11:04 Hypertension; aa5 - PSHx: 11:04 Hernia repair; aa5 14:47 Appendectomy; jl7 - Immunization history:: Adult Immunizations up to date. - Ebola Screening: : No symptoms or risks identified at this time. - Social history:: Smoking status: Patient/guardian denies using tobacco. Screenin:30 Abuse screen: Denies threats or abuse. Denies injuries from another. Nutritional jl7 screening: No deficits noted. Tuberculosis screening: No symptoms or risk factors identified. Fall Risk IV access (20 points). Total Hoskins Fall Scale indicates No Risk (0-24 pts). Assessment: 11:30 General: Appears in no apparent distress. uncomfortable, Behavior is calm, cooperative, jl7 appropriate for age. Pain: Complains of pain in diaphragm Pain does not radiate. Quality of pain is described as tender, Pain began 2-3 days ago. Is continuous. Neuro: Level of Consciousness is awake, alert, obeys commands, Oriented to person, place, time, situation. Cardiovascular: Denies chest pain, Heart tones present Patient's skin is warm and dry. Respiratory: Airway is patent Respiratory effort is even, unlabored, shallow, Respiratory pattern is regular, symmetrical, Breath sounds are clear in right upper lobe and left upper lobe. Derm: Skin is pink, warm \\T\\ dry. Musculoskeletal: Tenderness present in right rib cage. 12:15 Reassessment: Pt refused medication at this time, instructed to notify nurse if he jl7 starts feeling worse and wants the medication, pt verbally acknowledges understanding. 13:25 Reassessment: Pt appears to be shaking and reports "I just started shaking and got the jl7 chills. The pain is getting pretty bad, I'm ready for some medicine." Pt medicated as originally ordered. 14:30 Reassessment: Pt laying in bed with eyes closed, respirations even and unlabored, no jl7 signs of distress noted at this time. 15:30 Reassessment: Patient appears in no apparent distress at this time. No changes from 7 previously documented assessment. 16:30 Reassessment: Patient appears in no apparent distress at this time. Patient and/or [facility] family updated on plan of care and expected duration. Pain level reassessed. Patient is alert, oriented x 3, equal unlabored respirations, skin warm/dry/pink. 17:15 Reassessment: Pt ambulated to bathroom and around fast track back to room, O2 sat at jl7 89% on arrival back to room and up to 93% after sitting for about 3 minutes. ERP updated. 18:15 Reassessment: Patient appears in no apparent distress at this time. No changes from jl7 previously documented assessment. Patient and/or family updated on plan of care and expected duration. Pain level reassessed. Patient is alert, oriented x 3, equal unlabored respirations, skin warm/dry/pink. 18:22 Reassessment: attempted to call report, nurse unavailable. 7 Vital Signs: 11:05 BP 130 / 87; Pulse 84; Resp 18 S; Temp 97.6(TE); Pulse Ox 96% on R/A; Weight 72.57 kg aa5 (R); Height 5 ft. 7 in. (170.18 cm) (R); Pain 8/10; 12:19 BP 126 / 73; Pulse 81; Resp 20; Temp 97.7(TE); Pulse Ox 94% on R/A; mh5 13:00 BP 143 / 90; Pulse 85; Resp 17 S; Pulse Ox 92% on R/A; jl7 13:38 BP 134 / 80; Pulse 98; Resp 22 S; Temp 98.5(O); Pulse Ox 92% on R/A; jl7 14:44 BP 106 / 71; Pulse 88; Resp 15; Temp 99.0(TE); Pulse Ox 92% on R/A; mh5 15:54 BP 93 / 60; Pulse 81; Resp 16; Temp 98.9(TE); Pulse Ox 92% ; mh5 17:28 BP 98 / 63; Pulse 87; Resp 23 S; Pulse Ox 92% on R/A; jl7 18:11 BP 120 / 79; Pulse 82; Resp 16; Temp 97.6(TE); Pulse Ox 93% on R/A; mh5 11:05 Body Mass Index 25.06 (72.57 kg, 170.18 cm) aa5 ED Course: 10:59 Patient arrived in ED. rg4 10:59 Evelyn Nugent MD is Private Physician. rg4 11:03 Arm band placed on. aa5 11:05 Triage completed. aa5 11:06 EKG completed in triage. Results shown to MD. aa5 11:08 EKG done, by reproduction technician. reviewed by Omar Sorto MD. at1 11:29 Gabrielle Copeland, RN is Primary Nurse. jl7 11:30 Patient has correct armband on for positive identification. Placed in gown. Bed in low jl7 position. Call light in reach. Side rails up X 1. care provider on. Pulse ox on. NIBP on. 11:31 Elmer Gamble PA is PHCP. [facility] 11:31 Omar Sorto MD is Attending Physician. jmm 11:45 Inserted saline lock: 22 gauge in right forearm, using aseptic technique. Blood jl7 collected. Patient maintains SpO2 saturation greater than 95% on room air. 11:45 Initial lab(s) drawn, by ct, sent to lab. First set of blood cultures drawn by me. jl7 12:08 CT Chest For PE Angio In Process Unspecified. EDMS 12:18 CT Abd/Pelvis - IV Contrast Only In Process Unspecified. EDMS 12:31 Second set of blood cultures drawn by me. jl7 16:08 US Abdomen Limited In Process Unspecified. EDMS 17:50 Evelyn Nugent MD is Hospitalizing Provider. jmm 17:59 Chest Pa And Lat (2 Views) XRAY In Process Unspecified. EDMS 19:17 No provider procedures requiring assistance completed. Patient admitted, IV remains in jl7 place. intact, No redness/swelling at site. Administered Medications: 12:26 Not Given (Patient Refused): morphine 2 mg IVP once; RASS on ADMIN: Combtv4, Very jl7 Agttd3, Agttd2, Rstlss1, AlertClm0, Drwsy-1, Lt Sdtn-2, Mod Sdtn-3, Dp Sdtn-4, UnArsble-5 12:26 Not Given (Patient Refused): Zofran 4 mg IVP once; over 2 minutes jl7 13:25 Drug: Zofran 4 mg Route: IVP; Site: right antecubital; jl7 14:48 Follow up: Response: No adverse reaction jl7 13:25 Drug: morphine 2 mg Route: IVP; Site: right antecubital; jl7 13:55 Follow up: Response: No adverse reaction; Pain is decreased jl7 13:38 Drug: Tylenol 1000 mg Route: PO; jl7 14:05 Follow up: Response: No adverse reaction; Pain is decreased jl7 13:39 Drug: NS 0.9% 1000 ml Route: IV; Rate: 1 bolus; Site: right antecubital; jl7 14:47 Follow up: Response: No adverse reaction; IV Status: Completed infusion; IV Intake: jl7 1000ml 13:40 Not Given (Duplicate Order): morphine 2 mg IVP once; (PAIN>8) RASS on ADMN: Combtv4, jl7 Very Agttd3, Agttd2, Rstlss1, AlertClm0, Drwsy-1, LtSdtn-2, ModSdtn-3, DpSdtn-4, UnArsble-5 x2 18:23 Drug: Zosyn 3.375 grams Route: IVPB; Infused Over: 60 mins; Site: right antecubital; jl7 19:19 Follow up: IV Status: Infusion continued upon admission jl7 18:23 Drug: Lovenox 40 mg Route: Sub-Q; Site: left lower abdomen; 7 19:18 Follow up: Response: No adverse reaction jl7 Intake: 14:47 IV: 1000ml; Total: 1000ml. jl7 Outcome: 17:50 Decision to Hospitalize by Provider. raffy 19:17 Admitted to Med/surg accompanied by tech, family with patient, via wheelchair, room jl 201, with chart, Report called to Floor RN 19:17 Condition: stable 19:17 Discharge instructions given to patient, family, Instructed on the need for admit, Demonstrated understanding of instructions. 19:20 Patient left the ED. [facility] Signatures: Dispatcher [employer] EDMS Elmer Gamble PA PA jmm Calderon, Audri, RN RN aa5 Gerri Lezama, dry cleaning attendant EKG Tat1 Claudia Leslie4 Lindsey Mosquera 5 Gabrielle Copeland, RN RN jl7 Corrections: (The following items were deleted from the chart) 13:40 13:25 morphine 2 mg IVP in right antecubital jl7 jl7 17:54 17:28 BP 98 / 63; Pulse 90bpm; Resp 87bpm; Spontaneous; Pulse Ox 92% RA; jl7 jl7 18:24 18:23 Zosyn 3.375 grams IVPB in left antecubital over 60 mins jl7 7 18:32 17:15 Reassessment: Patient appears in no apparent distress at this time. No changes jl7 from previously documented assessment. Patient and/or family updated on plan of care and expected duration. Pain level reassessed. Patient is alert, oriented x 3, equal unlabored respirations, skin warm/dry/pink. jl7
[2018-12-20] MEDS: NA CHLORIDE 0.9% 1,000 ML IV SCH ×2 (18:00→19:52)
[2018-12-20] MEDS ORDERED: PIPER/TAZO/NS 3.375gm 3.375 GM/100 ML BAG IVPB SCH (18:00)
--- NOTE | 2018-12-20 18:06 | RAD REPORT ---
EXAM DESCRIPTION: RAD - Chest Pa And Lat (2 Views) - 12/20/2018 5:58 pm CLINICAL HISTORY: chest pain, shortness of breath Chest pain. COMPARISON: Chest Pa And Lat (2 Views) dated 09/25/2018; Chest Pa And Lat (2 Views) dated 10/02/2017; CHEST PA AND LAT 2 VIEW dated 05/24/2011; CHEST PA AND LAT 2 VIEW dated 05/05/2010; Abdomen Exam Limite d dated 12/20/2018; Chest For Pe Angio dated 12/20/2018 FINDINGS: Linear opacities in both lung bases are present compatible with atelectasis. Small right p leural effusion is present. The heart is normal in size. No displaced fractures.
[2018-12-20] MEDS ORDERED: ENOXAPARIN 40 MG/0.4 ML SQ ONE (18:07)
[2018-12-20 18:42] LABS: Urine Bacteria <20 /HPF (NONE SEEN); Urine Culture Reflex Order NOT NEEDED; Urine RBC <5 /HPF (NONE SEEN)
[2018-12-20 18:43] LABS: Urine Blood NEGATIVE (NEG); Urine Glucose NEGATIVE (NEG); Urine Protein NEGATIVE (NEG); Urine pH 6.5 (5.0-7.0)
[2018-12-20 20:18] VITALS: BMI 24.0
--- NOTE | 2018-12-20 20:20 | EKG ---
Test Date: 2018-12-20 Test Time: 11:07:52 [employer] Laborer: HOLGER MEASUREMENT RESULTS: Intervals: Rate: 83 OH: 182 QRSD: 88 QT: 364 QTc: 427 Coleman: P: 31 OH: 182 QRS: -16 T: 54 INTERPRETIVE STATEMENTS: Normal sinus rhythm Nonspecific ST abnormality Abnormal ECG Compared to ECG 10/02/2017 09:49:33 ST (T wave) deviation now present Electronically Signed On 12-20-18 20:18:26 CDT by Brandon Salcido
[2018-12-20] MEDS ORDERED: PIPER/TAZO/NS 3.375gm 6.750 GM/200 ML BAG ONE (23:32)
[2018-12-20] MEDS: PIPER/TAZO/NS 3.375gm 3.375 GM/100 ML BAG IVPB SCH (23:45)
[2018-12-21] MEDS: NA CHLORIDE 0.9% 1,000 ML IV SCH ×2 (03:55→14:00)
[2018-12-21] MEDS: PIPER/TAZO/NS 3.375gm 3.375 GM/100 ML BAG IVPB SCH ×4 (05:21→22:13)
[2018-12-21 06:03] LABS: Absolute Lymphocytes (CBC) 1.5 K/uL (0.7-4.9); Basophils % 0.9 % (0-1.3); Hematocrit 34.7 % (39.6-49.0); MPV 7.4 fL (7.6-11.3); RBC Red Blood Cell Count 3.64 M/uL (4.33-5.43)
[2018-12-21 06:17] LABS: BUN Blood Urea Nitrogen 13 mg/dL (7-18); Bicarbonate 30 mmol/L (21-32); Glucose Level 94 mg/dL (74-106); Potassium 4.1 mmol/L (3.5-5.1); Sodium Level 141 mmol/L (136-145)
--- NOTE | 2018-12-21 10:41 | P.CNS ---
Date of Consult: 12/21/18 Chief Complaint: A right-sided pleuritic chest pain History of Present Illness: Patient is 78 years of age admitted with sudden onset of right-sided pleuritic chest pain describes as deep underneath his right ribcage no fever chills cough sputum hemoptysis patient did have an appendectomy on Sunday which is a Labor Day he developed this pain the following Sunday came to the emergency room was found to have a loculated effusion on the right side not a parent on the chest x -ray CT of the abdomen ultrasound was unremarkable he still has some discomfort Allergies No Known Allergies Allergy (Verified 12/20/18 19:45) Home Medications: Unobtainable 12/20/18 - Past Medical/Surgical History Diabetic: No -: HTN -: Cataracts -: Hernia Repair -2016 -: Knee Surgery (bilateral)-2006 and 2007 - Social History Smoking Status: Unknown if ever smoked Alcohol use: Yes CD- Drugs: No Caffeine use: Yes Place of Residence: Home Review of Systems 10-point ROS is otherwise unremarkable Physical Examination Temp Pulse Resp BP Pulse Ox 97.9 F 88 17 119/71 95 12/21/18 08:00 12/21/18 08:00 12/21/18 08:00 12/21/18 08:00 12/21/18 08:00 General: Alert, In no apparent distress, Oriented x3 HEENT: Atraumatic Respiratory: Clear to auscultation bilaterally Cardiovascular: No edema, Regular rate/rhythm, Normal S1 S2 Gastrointestinal: Normal bowel sounds, Tenderness (Patient has slight tenderness in the right upper quadrant to the right flank region otherwise is abdomen looks normals incisions side is fine) Laboratory Data (last 24 hrs) 12/20/18 11:45: Creatinine 0.74 12/20/18 11:45: WBC 12.8 H D, Hgb 14.3 D, Hct 39.2 L D, Plt Count 326 D 12/20/18 11:45: Sodium 138, Potassium 3.9, BUN 14, Creatinine 0.72, Glucose 94, Total Bilirubin 0.6, AST 21, ALT 40, Alkaline Phosphatase 90, Lipase 160 - Problems (1) Pleuritic chest pain Current Visit: Yes Status: Acute Plan: Patient is 78 years of age admitted with right-sided pleuritic chest pain is a very small loculated pleural effusion apparent only on the CT scan white count has declined cultures are pending patient's blood pressure is a little low fold amlodipine oxygenation satisfactory chemistries unremarkable pro calcitonin level is negative once is cultures and negative patient can be discharged home patient was already on Augmentin continue with present treatment use over-the- counter nonsteroidals
[2018-12-21] MEDS ORDERED: levoFLOXacin 500 MG TAB PO ONE (16:19)
[2018-12-21] MEDS ORDERED: ENOXAPARIN 40 MG/0.4 ML SQ SCH (17:00)
[2018-12-21] MEDS: NEURONTIN 800 MG PO SCH (20:48)
[2018-12-21] MEDS ORDERED: GABAPENTIN 400 MG CAP PO SCH (21:00)
[2018-12-21] MEDS ORDERED: DONEPEZIL HCL 5 MG TAB PO SCH (21:00)
--- NOTE | 2018-12-21 22:29 | HP ---
Date of Admission: 12/20/2018 Chief Complaint: Pain. History Of Present Illness: This is a 78-year-old very pleasant male patient who had acute appendici tis earlier this month and he was in the hospital for few days. He had emergency laparoscopic append ectomy surgery done by Dr. Salazar and stayed in hospital for few days. While he was in hospital, in itially he was getting IV Cipro, and IV Flagyl and his WBC count went up on this 2 antibiotics, so we discontinued those 2 antibiotics and started him on IV Zosyn. He responded well to Zosyn. White co unt came down to normal and on December 11, 2018, he was discharged to go home with 2 weeks of Augmen tin 875 mg twice a day. Patient has been taking his medications including antibiotics regularly. As of Sunday evening of this week, he started to have pain in the right lower anterior rib cage area. The pain was more or less continuous and reported that the pain was getting worse with deep breaths or certain movements. No fever, chills, nausea, vomiting. No rash. No fall. No injury. No consti pation. No diarrhea. He went to see Dr. Salazar yesterday and Dr. Salazar evaluated him and he did not have any concern about any postsurgical complication, but due to this pain, he asked the patient to come to the emergency room. After the patient came to the ER, he was evaluated and admitted to [facility] with Pulmonary consultation. Workup done in the emergency room reviewed when ER provider contacted me for admission. This morning when I saw him, he is feeling better compared to yesterday. He denies any expectoration. Allergies: NO KNOWN ALLERGIES. Medications: List reviewed. Review of Systems: GI: As mentioned above. Respiratory: As mentioned above. Cardiovascular: As mentioned above. All other systems reviewed and negative. Past Medical History: Significant for hypertension, mixed hyperlipidemia, diverticulosis, benign pro static hypertrophy, osteoarthritis at multiple sites, peripheral neuropathy, and impaired memory. Past Surgical History: Knee surgery, shoulder surgery for rotator cuff, and cataracts surgery. Family History: Mother had myocardial infarction and brain tumor. Social History: Positive for occasional smoking and use of alcohol about 2 drinks a week. Physical Examination: VITAL SIGNS: Last vital signs this morning; temperature 97.6, pulse 78, respiratory rate 18, blood p ressure 109/60, oxygen saturation 92%. Height 5 feet 7 inches, weight 153 pounds. General: Awake, alert, oriented, not in distress. HEENT: Head atraumatic, normocephalic. Conjunctivae nonerythematous. Sclerae white. Mouth, no thr ush or edema noted. Ears/Nose, no mass, lesion, discharge noted. Neck: Supple. No JVD, lymph nodes, bruit, thyromegaly noted. Lungs: Right lung base diminished air entry compared to the left side. Heart: Normal heart sounds, no murmur or gallop. Abdomen: Soft, bowel sounds normal. No guarding, rigidity, tenderness, mass, hepatosplenomegaly, dis tention, or bruit noted. Extremities: No leg edema. No calf tenderness. Skin: No rash, ulcer, cellulitis. Lymphatics: No lymph node enlargement in neck, supraclavicular, infraclavicular region. Neuro: No focal neurological deficit. Chest: Unremarkable. External Genitalia: Deferred. Rectal: Deferred. Laboratory Data: White count 12.8, hemoglobin 14.3, platelets 326 yesterday. Today, white count 8, hemoglobin 12.3, platelets 252. Yesterday, sodium 138, potassium 3.9, chloride 104, bicarb 30, BUN 1 4, creatinine 0.72, glucose 94. Liver function tests unremarkable. Troponin less than 0.02. Procal citonin less than 0.05. This morning, sodium 141, potassium 4.1, chloride 107, bicarb 30, BUN 13, cr eatinine 0.80, glucose 94. His chest x-ray shows linear opacities in both lung bases compatible with atelectasis, small right pleural effusion present. Right upper quadrant abdominal ultrasound was un remarkable. CAT scan of the chest per PE protocol was negative for pulmonary embolism. Small locula sundeep right pleural effusion. Subsegmental atelectasis both lung bases. CAT scan of the abdomen shows no acute intraabdominal or pelvic finding. EKG; normal sinus rhythm, nonspecific ST changes. Impression: 1.Right pleural effusion, loculated. 2.Rule out pneumonia. 3.Hypertension. 4.Mixed hyperlipidemia. 5.Diverticulosis. 6.Benign prostatic hypertrophy. 7.Osteoarthritis, multiple sites. 8.Peripheral neuropathy. 9.Impaired memory. Plan: Admit patient to hospital for further evaluation and management of this problem. The patient is appropriate for inpatient and is expected to spend 2 midnights in hospital. He was already taking Augmentin for 10 days and still ended up having this problem with pleural effusion and I am not sure if there is any underlying small infiltrate or not that we may not be able to see because of the ple ural effusion, but in any case, he was using his incentive spirometer regularly at home and taking an tibiotics regularly. So, I am concerned that antibiotic that he was taking at home, which is Augment in, really did not prevent this particular problem from happening. Currently while in the hospital, he is on IV Zosyn. Pulmonary consultation was requested from Dr. Hernandez and after I saw him this m orning, Dr. Hernandez did evaluate him. I did talk to him and explained him about all these details a nd we both agreed that we should continue Augmentin upon discharge from the hospital, but we should a lso add second antibiotic like Levaquin for about 1 week. Our plan is to keep him in the hospital un til we get the preliminary blood culture results back. If the blood culture results negative, then w e will be able to discharge him to go home with oral antibiotic. Home medications will be continued per order. DVT prophylaxis was started yesterday from emergency using Lovenox. CHELA/MODL Voice ID: [id number]
[2018-12-22] MEDS ORDERED: PIPERACIL/TAZO 3.375 GM VIAL IV ONE (05:34)
[2018-12-22] MEDS ORDERED: NA CHLORIDE 0.9% 100 ML ONE (05:39)
[2018-12-22] MEDS: PIPER/TAZO/NS 3.375gm 3.375 GM/100 ML BAG IVPB SCH (05:51)
[2018-12-22] MEDS: NA CHLORIDE 0.9% 1,000 ML IV SCH ×2 (05:51)
[2018-12-22] MEDS: NEURONTIN 800 MG PO SCH (08:30)
[2018-12-22] MEDS ORDERED: levoFLOXacin 500 MG TAB PO SCH (09:00)
[2018-12-22 09:43] VITALS: O2SAT 94
[2018-12-22 10:03] VITALS: BP 138/74; TEMP 97.2
--- NOTE | 2018-12-22 22:27 | DS ---
Date of Discharge: 12/22/2018 Disposition: Discharged to go home. Physical Examination: HEENT: Examination unremarkable. Lungs: Clear to auscultation. No wheezing. Abdomen: Soft. Bowel sounds normal. No guarding, rigidity, tenderness, distention. Extremities: No leg edema. Hospital Course: This is a 78-year-old very pleasant male patient, came into emergency room with com plaints of pain. Please see dictated H and P for more information. Patient had acute appendicitis, and emergency laparoscopic appendectomy done beginning of this month and he was discharged to go home on 12/11/2018 with 2 weeks of Augmentin 875 mg twice a day that he was taking regularly as prescribe d. He was recovering well, was doing fine until about 3-4 days prior to this admission he started to have pain in his right lower anterior ribcage area. The pain was more or less continuous, worse wit h deep breathing or certain movement. Denies any fall injury. No rash. No expectoration. No hemop tysis. He came into the emergency room with this, after he was evaluated, he was admitted to the [facility]. Workup done in the emergency room showed evidence of possibly some atelectasis in the lung ba ses, loculated right pleural effusion. His initial white count was 12.8, hemoglobin 14.3, platelets 326 and day after admission white count came down to 8, hemoglobin 12.3, platelets 252. Right upper quadrant abdominal ultrasound was unremarkable. CAT scan of the chest per PE protocol was negative f or pulmonary embolism and it did show small loculated right pleural effusion, subsegmental atelectasi s in both lung bases. CAT scan of the abdomen shows no evidence of any acute intraabdominal or pelvi s finding. After the patient was admitted to the hospital, he was started on IV Zosyn. Pulmonary co nsultation was obtained from Dr. Hernandez. The details were discussed with Dr. Hernandez yesterday an d we decided to add Levaquin for 1 week for him, so Levaquin was started yesterday and we will contin ue this on outpatient basis for 1 week when he goes home today. This morning when I saw him, he was feeling much better. His pain is much better. He is able to take deeper breath and does not have an y shortness of breath or any other complaints. One other concern we have regarding this pleural effu jerod is if this is the result of any underlying pneumonia that we were not able to see because of the fluid collection, so we would definitely treat him with antibiotics as outlined above. Final Diagnoses: 1.Right pleural effusion, loculated. 2.Rule out pneumonia. 3.Hypertension. 4.Mixed hyperlipidemia. 5.Diverticulosis. 6.Benign prostatic hypertrophy. 7.Osteoarthritis, multiple sites. 8.Peripheral neuropathy. 9.Impaired memory. Discharge Medications And Instructions: 1.Continue all prior home medications. 2.Take Levaquin 500 mg p.o. daily for 1 week. 3.Follow up with Dr. Hernandez during this coming week and follow up at my office during the week of 12/30/2018 and patient to call office for appointment. CHELA/SONJA Voice ID: [id number] Report ID: [id number]
== END 2018-12-22 09:49 | disposition home or self-care (01) | DRG 186 ==
LOC: ER 10:57 → ERHOLD 17:53 → OBSVTOIN 17:53 → 2ND 19:16
PROVIDERS: ADMIT Internal Medicine; ATTEND Internal Medicine
DX: J90 Pleural effusion, not elsewhere classified (principal); J18.9 Pneumonia, unspecified organism; J91.8 Pleural effusion in other conditions classified elsewhere; I10 Essential (primary) hypertension; E78.2 Mixed hyperlipidemia; K57.90 Diverticulosis of intestine, part unspecified, without perforation or abscess without bleeding; N40.0 Benign prostatic hyperplasia without lower urinary tract symptoms; M19.90 Unspecified osteoarthritis, unspecified site; G62.9 Polyneuropathy, unspecified
CPT/HCPCS: 36415; 71046; 71275; 74177; 76705; 80048; 80076; 81003; 81015; 83605; 83690; 84145; 84484; 85025; 87040; 87086; 87088; 93005; 96361; 96365; 96372; 96375; 99285; J1650; J2270; J2405; J2543; J7030; Q9967